=== PATIENT | female | born 1990 | race Caucasian/White ===

== ENCOUNTER 2018-02-01 20:30 | Outpatient (CLI) | payer OTHER ==
[2018-02-01 21:01] LABS: APPEARANCE,URINE CLEAR; BILIRUBIN,URINE NEGATIVE (NEGATIVE); COLOR,URINE YELLOW; GLUCOSE, URINE NEGATIVE (NEGATIVE); KETONES,URINE NEGATIVE (NEGATIVE); LEUKOCYTE ESTERASE,URINE NEGATIVE (NEGATIVE); NITRITE,URINE NEGATIVE (NEGATIVE); PROTEIN,URINE NEGATIVE (NEGATIVE); URINE SPECIFIC GRAVITY 1.025; UROBILINOGEN,URINE NEGATIVE mg/dL (<2.0)
[2018-02-01 21:16] LABS: URINE AMPHETAMINES SCREEN NEGATIVE; URINE BARBITURATES SCREEN NEGATIVE; URINE BENZODIAZEPINES SCREEN NEGATIVE; URINE COCAINE SCREEN NEGATIVE; URINE MARIJUANA (THC) SCREEN NEGATIVE; URINE METHADONE SCREEN NEGATIVE; URINE PHENCYCLIDINE SCREEN NEGATIVE
--- NOTE | 2018-02-01 23:05 | RADIOLOGY REPORT (SQ) ---
EXAM DESCRIPTION: OB limited ultrasound CLINICAL HISTORY: 28 years, Female, cervical length, abd pressure second trimester COMPARISON: None. TECHNIQUE: Targeted OB sonogram for Limited, requested parameters FINDINGS: Cervical length: 3.6 cm, appears closed, minimal fluid within cervical canal LENA: 7.3 cm, clear Cardiac activity: 137 bpm Placenta location: Posterior fundal. No abruption. No placenta previa. IMPRESSION: Targeted OB sonogram for Limited requested parameters.
== END 2018-02-01 23:16 | disposition home or self-care (01) ==
LOC: LC 20:30
PROVIDERS: ATTEND Obstetrics & Gynecology
PROC: 4A1HXCZ Monitoring of Products of Conception, Cardiac Rate, External Approach (ICD-10-PCS; principal; 2018-02-01)
DX: O26.892 Other specified pregnancy related conditions, second trimester (principal); R10.9 Unspecified abdominal pain; Z3A.00 Weeks of gestation of pregnancy not specified
CPT/HCPCS: 76815; 80307; 81001

== ENCOUNTER 2018-03-05 12:25 | Outpatient (CLI) | payer OTHER ==
[2018-03-05] MEDS ORDERED: BUTALB/ACETAMINOPHEN/CAFFEINE 1 TAB EACH ONE (13:10)
[2018-03-05 13:14] LABS: APPEARANCE,URINE CLEAR; BILIRUBIN,URINE NEGATIVE (NEGATIVE); COLOR,URINE COLORLESS; GLUCOSE, URINE NEGATIVE (NEGATIVE); KETONES,URINE NEGATIVE (NEGATIVE); LEUKOCYTE ESTERASE,URINE NEGATIVE (NEGATIVE); NITRITE,URINE NEGATIVE (NEGATIVE); PROTEIN,URINE NEGATIVE (NEGATIVE); URINE SPECIFIC GRAVITY 1.002; UROBILINOGEN,URINE NEGATIVE mg/dL (<2.0)
[2018-03-05] MEDS ORDERED: BUTALB/ACETAMINOPHEN/CAFFEINE 1 TAB EACH PO ONE (13:30)
[2018-03-05 13:47] LABS: URINE AMPHETAMINES SCREEN NEGATIVE; URINE BARBITURATES SCREEN NEGATIVE; URINE BENZODIAZEPINES SCREEN NEGATIVE; URINE COCAINE SCREEN NEGATIVE; URINE MARIJUANA (THC) SCREEN NEGATIVE; URINE METHADONE SCREEN NEGATIVE; URINE PHENCYCLIDINE SCREEN NEGATIVE
[2018-03-05] MEDS ORDERED: RINGERS SOLUTION,LACTATED 500 ML IV PRN (14:49)
[2018-03-05] MEDS ORDERED: DIPHENHYDRAMINE HCL 50 MG/ML VIAL IV ONE (14:50)
[2018-03-05] MEDS ORDERED: PROCHLORPERAZINE EDISYLATE INJ 10 MG/2 ML VIAL IM ONE (14:50)
[2018-03-05] MEDS ORDERED: PROCHLORPERAZINE MALEATE 10 MG TABLET ONE (15:23)
[2018-03-05] MEDS ORDERED: DIPHENHYDRAMINE HCL 50 MG/ML VIAL ONE (15:23)
== END 2018-03-05 16:55 | disposition home or self-care (01) ==
LOC: LC 12:25
PROVIDERS: ATTEND Obstetrics & Gynecology
PROC: 4A1HXCZ Monitoring of Products of Conception, Cardiac Rate, External Approach (ICD-10-PCS; principal; 2018-03-05)
DX: O26.892 Other specified pregnancy related conditions, second trimester (principal); R51 Headache; O21.2 Late vomiting of pregnancy; M54.9 Dorsalgia, unspecified; R42 Dizziness and giddiness; Z3A.26 26 weeks gestation of pregnancy
CPT/HCPCS: 59899; 81001; 80307; J3490; J1200; J0780; S0183

== ENCOUNTER 2018-03-23 22:12 | Outpatient (CLI) | payer OTHER ==
[2018-03-23 22:44] LABS: APPEARANCE,URINE CLEAR; BILIRUBIN,URINE NEGATIVE (NEGATIVE); COLOR,URINE STRAW; GLUCOSE, URINE NEGATIVE (NEGATIVE); KETONES,URINE NEGATIVE (NEGATIVE); LEUKOCYTE ESTERASE,URINE NEGATIVE (NEGATIVE); NITRITE,URINE NEGATIVE (NEGATIVE); PROTEIN,URINE NEGATIVE (NEGATIVE); URINE SPECIFIC GRAVITY 1.002; UROBILINOGEN,URINE NEGATIVE mg/dL (<2.0)
[2018-03-23 22:57] LABS: URINE AMPHETAMINES SCREEN NEGATIVE; URINE BARBITURATES SCREEN NEGATIVE; URINE BENZODIAZEPINES SCREEN NEGATIVE; URINE COCAINE SCREEN NEGATIVE; URINE MARIJUANA (THC) SCREEN NEGATIVE; URINE METHADONE SCREEN NEGATIVE; URINE PHENCYCLIDINE SCREEN NEGATIVE
[2018-03-23] MEDS ORDERED: HYDROXYZINE PAMOATE 50 MG CAPSULE PO ONE (23:35)
[2018-03-23] MEDS ORDERED: HYDROXYZINE PAMOATE 50 MG CAPSULE ONE (23:37)
== END 2018-03-23 23:46 | disposition home or self-care (01) ==
LOC: LC 22:12
PROVIDERS: ATTEND Obstetrics & Gynecology
PROC: 4A1HXCZ Monitoring of Products of Conception, Cardiac Rate, External Approach (ICD-10-PCS; principal; 2018-03-23)
DX: O47.03 False labor before 37 completed weeks of gestation, third trimester (principal); Z3A.28 28 weeks gestation of pregnancy
CPT/HCPCS: 80307; 81001

== ENCOUNTER 2018-04-11 13:34 | Outpatient (CLI) | payer OTHER ==
[2018-04-11 15:15] LABS: APPEARANCE,URINE CLEAR; BILIRUBIN,URINE NEGATIVE (NEGATIVE); COLOR,URINE YELLOW; GLUCOSE, URINE NEGATIVE (NEGATIVE); KETONES,URINE NEGATIVE (NEGATIVE); LEUKOCYTE ESTERASE,URINE NEGATIVE (NEGATIVE); NITRITE,URINE NEGATIVE (NEGATIVE); PROTEIN,URINE NEGATIVE (NEGATIVE); URINE SPECIFIC GRAVITY 1.017; UROBILINOGEN,URINE NEGATIVE mg/dL (<2.0)
[2018-04-11 16:00] LABS: URINE AMPHETAMINES SCREEN NEGATIVE; URINE BARBITURATES SCREEN NEGATIVE; URINE BENZODIAZEPINES SCREEN NEGATIVE; URINE COCAINE SCREEN NEGATIVE; URINE MARIJUANA (THC) SCREEN NEGATIVE; URINE METHADONE SCREEN NEGATIVE; URINE PHENCYCLIDINE SCREEN NEGATIVE
== END 2018-04-11 14:00 | disposition home or self-care (01) ==
LOC: LC 13:34
PROVIDERS: ATTEND Obstetrics & Gynecology Gynecology
PROC: 4A1HXCZ Monitoring of Products of Conception, Cardiac Rate, External Approach (ICD-10-PCS; principal; 2018-04-11)
DX: O36.8130 Decreased fetal movements, third trimester, not applicable or unspecified (principal); Z3A.31 31 weeks gestation of pregnancy
CPT/HCPCS: 80307; 81001

== ENCOUNTER 2018-04-12 16:28 | Outpatient (CLI) | payer OTHER ==
[2018-04-12 17:22] LABS: APPEARANCE,URINE CLEAR; BILIRUBIN,URINE NEGATIVE (NEGATIVE); COLOR,URINE STRAW; GLUCOSE, URINE NEGATIVE (NEGATIVE); KETONES,URINE NEGATIVE (NEGATIVE); LEUKOCYTE ESTERASE,URINE NEGATIVE (NEGATIVE); NITRITE,URINE NEGATIVE (NEGATIVE); PROTEIN,URINE NEGATIVE (NEGATIVE); URINE SPECIFIC GRAVITY 1.009; UROBILINOGEN,URINE NEGATIVE mg/dL (<2.0)
[2018-04-12 17:34] LABS: URINE AMPHETAMINES SCREEN NEGATIVE; URINE BARBITURATES SCREEN NEGATIVE; URINE BENZODIAZEPINES SCREEN NEGATIVE; URINE COCAINE SCREEN NEGATIVE; URINE MARIJUANA (THC) SCREEN NEGATIVE; URINE METHADONE SCREEN NEGATIVE; URINE PHENCYCLIDINE SCREEN NEGATIVE
[2018-04-12 17:59] LABS: ABSOLUTE EOSINOPHILS # (AUTO) 0.1 10^3/uL (0.0-0.6); ABSOLUTE LYMPHOCYTES (AUTO) 2.4 10^3/uL (0.5-4.7); ABSOLUTE MONOCYTES (AUTO) 1.2 10^3/uL (0.1-1.4); ABSOLUTE NEUT (AUTO) 7.8 10^3/uL (1.7-8.2); BASOPHILS % (AUTO) 0.3 % (0-2); EOSINOPHILS % (AUTO) 0.5 % (0-6); HEMATOCRIT 37.5 % (36.0-47.0); HEMOGLOBIN 12.8 g/dL (12.0-15.5); LYMPHOCYTES % (AUTO) 20.9 % (13-45); MEAN CORPUSCULAR HEMOGLOBIN 29.1 pg (27.0-33.4); MEAN CORPUSCULAR VOLUME 86 fl (80-97); MONOCYTES % (AUTO) 10.4 % (3-13); PLATELET COUNT 201 10^3/uL (150-450); RED BLOOD COUNT 4.38 10^6/uL (3.72-5.28); RED CELL DISTRIBUTION WIDTH 13.6 % (11.5-14.0); SEGMENTED NEUTROPHILS % (AUTO) 67.9 % (42-78); TOTAL CELLS COUNTED % (AUTO) 100 %; WHITE BLOOD COUNT 11.5 10^3/uL (4.0-10.5)
[2018-04-12 18:20] LABS: ALANINE AMINOTRANSFERASE 22 U/L (9-52); ALBUMIN 3.7 g/dL (3.5-5.0); ALKALINE PHOSPHATASE 103 U/L (38-126); ANION GAP 13 (5-19); ASPARTATE AMINO TRANSFERASE 18 U/L (14-36); BILIRUBIN,DIRECT 0.2 mg/dL (0.0-0.4); BILIRUBIN,TOTAL 0.3 mg/dL (0.2-1.3); BLOOD UREA NITROGEN 8 mg/dL (7-20); CALCIUM 9.7 mg/dL (8.4-10.2); CARBON DIOXIDE 18 mmol/L (22-30); CHLORIDE 107 mmol/L (98-107); GLUCOSE 70 mg/dL (75-110); SODIUM 137.5 mmol/L (137-145); TOTAL PROTEIN 6.6 g/dL (6.3-8.2); URIC ACID 5.2 mg/dL (2.5-6.2)
[2018-04-12 18:26] LABS: UR PRO/CREAT RATIO RESULT 0.4 mg/mg (0.0-0.2); URINE CREATININE 33.7 mg/dL (16-327); URINE PROTEIN 12.2 mg/dL (<12)
== END 2018-04-12 18:44 | disposition home or self-care (01) ==
LOC: LC 16:28
PROVIDERS: ATTEND Obstetrics & Gynecology
PROC: 4A1HXCZ Monitoring of Products of Conception, Cardiac Rate, External Approach (ICD-10-PCS; principal; 2018-04-12)
DX: O12.03 Gestational edema, third trimester (principal); Z3A.31 31 weeks gestation of pregnancy
CPT/HCPCS: 36415; 80053; 80307; 81001; 82570; 83615; 84156; 84550; 85025

== ENCOUNTER 2018-04-15 11:42 | Outpatient (CLI) | payer OTHER ==
--- NOTE | 2018-04-15 12:52 | Non Stress Test Report ---
Non Stress Test Datetime Report Generated by CPN: 04/15/2018 12:52 DEMOGRAPHIC EGA NST: 32.0 INDICATION Indication for Study: Decreased Movement VITAL SIGNS Temperature - NST: 97.9 Pulse - NST: 74 RESP - NST: 14 NBPSYS NST: 120 NBPDIA NST: 79 MONITORING Monitor Explained: Monitor Explained; Test Explained; Patient Verbalized Understanding Time on Monitor: 04/15/2018 12:01 Time off Monitor: 04/15/2018 12:31 NST Duration: 30 NST INTERVENTIONS NST Interventions: PO Hydration; Reposition Patient Physician Notified NST: A Bernabe CNM BABY A: [id number] BABY A Movement : Present Contraction Frequency : 0 FHR Baseline : 125 Accelerations : 15X15 Decelerations : None Variability : Moderate 6-25bpm NST Review: Meets Criteria for Reactive NST NST Review and Verified By : UZMA Tomlinson Results: Reactive NST REPORT Report Trigger: Send Report
== END 2018-04-15 12:35 | disposition home or self-care (01) ==
LOC: LC 11:42
PROVIDERS: ATTEND Obstetrics & Gynecology
PROC: 4A1HXCZ Monitoring of Products of Conception, Cardiac Rate, External Approach (ICD-10-PCS; principal; 2018-04-15)
DX: O36.8130 Decreased fetal movements, third trimester, not applicable or unspecified (principal); Z3A.32 32 weeks gestation of pregnancy
CPT/HCPCS: 59025

== ENCOUNTER 2018-04-19 09:48 | Outpatient (CLI) | payer OTHER ==
[2018-04-19 11:23] LABS: APPEARANCE,URINE CLEAR; BILIRUBIN,URINE NEGATIVE (NEGATIVE); COLOR,URINE STRAW; GLUCOSE, URINE NEGATIVE (NEGATIVE); KETONES,URINE NEGATIVE (NEGATIVE); LEUKOCYTE ESTERASE,URINE TRACE (NEGATIVE); NITRITE,URINE NEGATIVE (NEGATIVE); PROTEIN,URINE NEGATIVE (NEGATIVE); URINE SPECIFIC GRAVITY 1.004; UROBILINOGEN,URINE NEGATIVE mg/dL (<2.0)
[2018-04-19 11:29] LABS: ABSOLUTE BASOPHILS # (AUTO) 0.1 10^3/uL (0.0-0.2); ABSOLUTE LYMPHOCYTES (AUTO) 2.2 10^3/uL (0.5-4.7); ABSOLUTE MONOCYTES (AUTO) 0.9 10^3/uL (0.1-1.4); BASOPHILS % (AUTO) 0.6 % (0-2); EOSINOPHILS % (AUTO) 0.3 % (0-6); HEMATOCRIT 37.5 % (36.0-47.0); LYMPHOCYTES % (AUTO) 21.7 % (13-45); MEAN CORPUSCULAR HEMOGLOBIN 29.2 pg (27.0-33.4); MEAN CORPUSCULAR HGB CONC 34.7 g/dL (32.0-36.0); MEAN CORPUSCULAR VOLUME 84 fl (80-97); MONOCYTES % (AUTO) 9.2 % (3-13); PLATELET COUNT 182 10^3/uL (150-450); RED BLOOD COUNT 4.45 10^6/uL (3.72-5.28); RED CELL DISTRIBUTION WIDTH 13.6 % (11.5-14.0); SEGMENTED NEUTROPHILS % (AUTO) 68.2 % (42-78); TOTAL CELLS COUNTED % (AUTO) 100 %; WHITE BLOOD COUNT 10.2 10^3/uL (4.0-10.5)
[2018-04-19 11:42] LABS: URINE AMPHETAMINES SCREEN NEGATIVE; URINE BARBITURATES SCREEN NEGATIVE; URINE BENZODIAZEPINES SCREEN NEGATIVE; URINE COCAINE SCREEN NEGATIVE; URINE MARIJUANA (THC) SCREEN NEGATIVE; URINE METHADONE SCREEN NEGATIVE; URINE PHENCYCLIDINE SCREEN NEGATIVE
[2018-04-19 11:56] LABS: ALANINE AMINOTRANSFERASE 23 U/L (9-52); ALBUMIN 3.5 g/dL (3.5-5.0); ALKALINE PHOSPHATASE 105 U/L (38-126); ANION GAP 10 (5-19); ASPARTATE AMINO TRANSFERASE 21 U/L (14-36); BILIRUBIN,DIRECT 0.2 mg/dL (0.0-0.4); BILIRUBIN,TOTAL 0.3 mg/dL (0.2-1.3); BLOOD UREA NITROGEN 10 mg/dL (7-20); CALCIUM 9.3 mg/dL (8.4-10.2); CARBON DIOXIDE 19 mmol/L (22-30); CHLORIDE 108 mmol/L (98-107); GLUCOSE 71 mg/dL (75-110); POTASSIUM 4.5 mmol/L (3.6-5.0); SODIUM 136.8 mmol/L (137-145); TOTAL PROTEIN 6.2 g/dL (6.3-8.2); URIC ACID 5.9 mg/dL (2.5-6.2)
[2018-04-19 12:35] LABS: UR PRO/CREAT RATIO RESULT 0.6 mg/mg (0.0-0.2); URINE CREATININE 22.6 mg/dL (16-327); URINE PROTEIN 14.2 mg/dL (<12)
--- NOTE | 2018-04-19 12:47 | Non Stress Test Report ---
Non Stress Test Datetime Report Generated by CPN: 04/19/2018 12:47 DEMOGRAPHIC EGA NST: 32.4 INDICATION Indication for Study: Ordered by Provider Indication for Study (NST) Other: lc for preeclampsia MONITORING Monitor Explained: Monitor Explained; Test Explained; Patient Verbalized Understanding Time on Monitor: 04/19/2018 10:22 Time off Monitor: 04/19/2018 11:32 NST Duration: 70 NST INTERVENTIONS NST Interventions: PO Hydration; Reposition Patient Physician Notified NST: J Hardin CNM Physician Notified NST: J Hardin CNM BABY A: [id number] BABY A Movement : Present Contraction Frequency : denies Accelerations : 15X15 Decelerations : None Variability : Moderate 6-25bpm NST Review: Meets Criteria for Reactive NST NST Review and Verified By : Diony Peña RN NST Results: Reactive NST REPORT Report Trigger: Send Report
== END 2018-04-19 12:38 | disposition home or self-care (01) ==
LOC: LC 09:48
PROVIDERS: ATTEND Obstetrics & Gynecology
PROC: 4A1HXCZ Monitoring of Products of Conception, Cardiac Rate, External Approach (ICD-10-PCS; principal; 2018-04-19)
DX: O14.93 Unspecified pre-eclampsia, third trimester (principal); Z3A.32 32 weeks gestation of pregnancy
CPT/HCPCS: 36415; 59025; 80053; 80307; 81001; 82570; 84156; 84550; 85025

== ENCOUNTER 2018-04-26 14:26 | Observation (INO) | payer OTHER ==
[2018-04-26 15:16] LABS: APPEARANCE,URINE CLEAR; BILIRUBIN,URINE NEGATIVE (NEGATIVE); COLOR,URINE YELLOW; GLUCOSE, URINE NEGATIVE (NEGATIVE); KETONES,URINE NEGATIVE (NEGATIVE); LEUKOCYTE ESTERASE,URINE NEGATIVE (NEGATIVE); NITRITE,URINE NEGATIVE (NEGATIVE); PROTEIN,URINE 30 mg/dL (NEGATIVE); URINE SPECIFIC GRAVITY 1.015; UROBILINOGEN,URINE NEGATIVE mg/dL (<2.0)
[2018-04-26 15:22] LABS: ABSOLUTE LYMPHOCYTES (AUTO) 2.3 10^3/uL (0.5-4.7); ABSOLUTE MONOCYTES (AUTO) 0.9 10^3/uL (0.1-1.4); ABSOLUTE NEUT (AUTO) 7.4 10^3/uL (1.7-8.2); BASOPHILS % (AUTO) 0.1 % (0-2); EOSINOPHILS % (AUTO) 0.4 % (0-6); HEMATOCRIT 38.9 % (36.0-47.0); HEMOGLOBIN 13.1 g/dL (12.0-15.5); LYMPHOCYTES % (AUTO) 21.8 % (13-45); MEAN CORPUSCULAR HEMOGLOBIN 29.1 pg (27.0-33.4); MEAN CORPUSCULAR HGB CONC 33.8 g/dL (32.0-36.0); MEAN CORPUSCULAR VOLUME 86 fl (80-97); MONOCYTES % (AUTO) 8.3 % (3-13); PLATELET COUNT 195 10^3/uL (150-450); RED BLOOD COUNT 4.52 10^6/uL (3.72-5.28); SEGMENTED NEUTROPHILS % (AUTO) 69.4 % (42-78); TOTAL CELLS COUNTED % (AUTO) 100 %; WHITE BLOOD COUNT 10.6 10^3/uL (4.0-10.5)
[2018-04-26 15:37] LABS: ALANINE AMINOTRANSFERASE 26 U/L (9-52); ALBUMIN 3.4 g/dL (3.5-5.0); ALKALINE PHOSPHATASE 108 U/L (38-126); ANION GAP 11 (5-19); ASPARTATE AMINO TRANSFERASE 22 U/L (14-36); BILIRUBIN,DIRECT 0.1 mg/dL (0.0-0.4); BILIRUBIN,TOTAL 0.1 mg/dL (0.2-1.3); BLOOD UREA NITROGEN 13 mg/dL (7-20); CARBON DIOXIDE 22 mmol/L (22-30); CHLORIDE 105 mmol/L (98-107); GLUCOSE 95 mg/dL (75-110); POTASSIUM 4.5 mmol/L (3.6-5.0); SODIUM 137.9 mmol/L (137-145); URIC ACID 5.8 mg/dL (2.5-6.2)
[2018-04-26 15:41] LABS: URINE AMPHETAMINES SCREEN NEGATIVE; URINE BARBITURATES SCREEN NEGATIVE; URINE BENZODIAZEPINES SCREEN NEGATIVE; URINE COCAINE SCREEN NEGATIVE; URINE MARIJUANA (THC) SCREEN NEGATIVE; URINE METHADONE SCREEN NEGATIVE; URINE PHENCYCLIDINE SCREEN NEGATIVE
[2018-04-26 15:45] LABS: UR PRO/CREAT RATIO RESULT 0.4 mg/mg (0.0-0.2); URINE CREATININE 104.8 mg/dL (16-327); URINE PROTEIN 41.3 mg/dL (<12)
[2018-04-26] MEDS ORDERED: BETAMET ACET/BETAMET NA INJ 6 MG/1 ML IM ONE (16:07)
--- NOTE | 2018-04-26 16:22 | Admission Physical ---
Datetime Report Generated by CPN: 04/26/2018 16:21 CURRENT ADMISSION Chief Complaint: Signs/Symptoms Gestational HTN Indication for Induction: Not Applicable Admit Impression : , Intrauterine Admit Plan: Observation/Evaluation ALLERGIES Medication Allergies: No Medication Allergies: No Known Allergies (04/15/2018) Latex: No Latex Allergies Environmental Allergies: bees OBSTETRICAL HISTORY EDC: 06/10/2018 00:00 : 2 Para: 0 Term: 0 : 0 SAB: 1 IAB: 0 Ectopic: 0 Livin Cesareans: 0 VBACs: 0 Multiple Births: 0 Gestational Diabetes: No Rh Sensitization: No Incompetent Cervix: No AYSE: No Infertility: No ART Treatment: No Uterine Anomaly: No IUGR: No Hx Previous C/S: No Macrosomia: No Hx Loss/Stillborn: No PIH: No Hx : No Placenta Previa/Abruption: No Depression/PP Depression: Yes PTL/PROM: No Post Hemorrhage: No Current Procedures: Ultrasound Obstetrical History Comments: g1-2014, sab, unknown gestation (patient did not mention when doing history, info per records) g2-current , hypothryoid SEE RECORDS Alcohol: No Marijuana : No Cocaine: No Other Illicit Drugs: No Cigarettes: Former Smoker. [id number] MEDICAL HISTORY Diabetes: No Blood Transfusion: No Pulmonary Disease (Asthma, TB): No Breast Disease: No Hypertension: No Senior Management Consultant Surgery: No Heart Disease: No Hosp/Surgery: No Autoimmune Disorder: No Anesthetic Complications: No Kidney Disease: No Abnormal Pap Smear: Yes Neuro/Epilepsy: No Psychiatric Disorders: Yes Other Medical Diseases: No Hepatitis/Liver Disease: No Significant Family History: No Varicosities/Phlebitis: No Trauma/Violence : No Thyroid Dysfunction: Yes Medical History Comments: bipolar, anxiety, HSV, hypothyroid , abn pap with colpo-results wnl no further issues, occasional depression with bipolar INFECTIOUS HISTORY Gonorrhea: No Genital Herpes: Yes Chlamydia: No Tuberculosis: No Syphilis: No Hepatitis: No HIV/AIDS Exposure: No Rash or Viral Illness: No HPV: Unknown Infectious History Comments: last HSV outbreak was several years ago, history of genital warts listed in records PHYSICAL EXAM General: Normal HEENT: Normal Neurologic: Normal Thyroid: Deferred Heart: Normal Lungs: Normal Breast: Deferred Back: Normal Abdomen: Normal Genitourinary Exam: Normal Extremities: Normal DTRs: Normal Pelvic Type: Adequate Vital Signs: Reviewed FETUS A EGA: 33.4 Monitoring: External US Admit Comment: 28yo at 33+4ega presents from Office with elevated Bps and EDDY. EDDY resolved with meds. H/o of 24 hour UTP greater than 300mg and dx of preE. Pt with Bipolar with anxiety. Labile BPs and stable/nromal PIH labs. Admit for steroids for FLM. Monitor BPs. Collect 24 hour UTP and repeat labs in am. Will initiate BP meds. Deliver for signs of severe preE. PLANS FOR LABOR AND DELIVERY Labor and Delivery: None Pain Management: Medications; Epidural Feeding Preference: Both Benefit of Breast Feed Discussed: Yes Circumcision: N/A INFORMED CONSENT Informed Consent Obtained: Vaginal Delivery; Section Delivery; Risks, Benefits and Alternatives Discussed Signature: with User ID: [email or web address]
[2018-04-26] MEDS ORDERED: NIFEDIPINE 30 MG TAB.ER.24 PO SCH (17:00)
[2018-04-26] MEDS ORDERED: CALCIUM CARBONATE 500 MG TAB.CHEW PO PRN (17:50)
[2018-04-26] MEDS ORDERED: (PENDING PHARMACY ID) (Ranitidine Hcl [Zantac 150 Mg Tablet] 1 TAB) PO SCH (18:00)
[2018-04-26] MEDS ORDERED: NIFEDIPINE 30 MG TAB.ER.24 PO ONE (18:17)
[2018-04-26] MEDS ORDERED: BETAMET ACET/BETAMET NA INJ 6 MG/1 ML ONE (18:17)
[2018-04-26] MEDS ORDERED: TRAZODONE HCL 50 MG TABLET PO PRN (18:22)
[2018-04-26] MEDS ORDERED: VALACYCLOVIR HCL 500 MG TABLET ONE (19:50)
[2018-04-26] MEDS ORDERED: CITRIC ACID/SODIUM CITRATE ORAL SOLN 15 ML UDCUP PO ONE (20:22)
[2018-04-26] MEDS ORDERED: MAG HYDROX/AL HYDROX/SIMETH SUSP 30 ML UDCUP PO PRN (20:22)
[2018-04-26] MEDS ORDERED: ZOLPIDEM TARTRATE 5 MG TABLET PO SCH (22:00)
[2018-04-26] MEDS ORDERED: VALACYCLOVIR HCL 500 MG TABLET PO SCH (22:00)
[2018-04-26] MEDS ORDERED: FAMOTIDINE 20 MG TABLET PO SCH (22:00)
[2018-04-26] MEDS ORDERED: CITRIC ACID/SODIUM CITRATE ORAL SOLN 15 ML UDCUP ONE (22:14)
[2018-04-26] MEDS ORDERED: SERTRALINE HCL 50 MG TABLET ONE (22:15)
[2018-04-26] MEDS ORDERED: TRAZODONE HCL 50 MG TABLET ONE (22:22)
[2018-04-27] MEDS ORDERED: LEVOTHYROXINE SODIUM 0.1 MG TABLET PO SCH (06:00)
[2018-04-27] MEDS ORDERED: ACETAMINOPHEN 325 MG TABLET PO ONE ×3 (06:10→15:05)
[2018-04-27] MEDS ORDERED: ACETAMINOPHEN 325 MG TABLET ONE ×2 (06:28→15:01)
[2018-04-27 07:17] LABS: ABSOLUTE LYMPHOCYTES (AUTO) 1.6 10^3/uL (0.5-4.7); ABSOLUTE MONOCYTES (AUTO) 0.5 10^3/uL (0.1-1.4); ABSOLUTE NEUT (AUTO) 11.3 10^3/uL (1.7-8.2); BASOPHILS % (AUTO) 0.3 % (0-2); HEMOGLOBIN 13.3 g/dL (12.0-15.5); LYMPHOCYTES % (AUTO) 12.2 % (13-45); MEAN CORPUSCULAR HEMOGLOBIN 28.9 pg (27.0-33.4); MEAN CORPUSCULAR VOLUME 85 fl (80-97); MONOCYTES % (AUTO) 3.4 % (3-13); PLATELET COUNT 206 10^3/uL (150-450); RED CELL DISTRIBUTION WIDTH 14.1 % (11.5-14.0); SEGMENTED NEUTROPHILS % (AUTO) 84.1 % (42-78); TOTAL CELLS COUNTED % (AUTO) 100 %; WHITE BLOOD COUNT 13.4 10^3/uL (4.0-10.5)
[2018-04-27 07:29] LABS: ALANINE AMINOTRANSFERASE 27 U/L (9-52); ALBUMIN 3.5 g/dL (3.5-5.0); ALKALINE PHOSPHATASE 109 U/L (38-126); ANION GAP 12 (5-19); ASPARTATE AMINO TRANSFERASE 25 U/L (14-36); BILIRUBIN,DIRECT 0.1 mg/dL (0.0-0.4); BILIRUBIN,TOTAL 0.3 mg/dL (0.2-1.3); BLOOD UREA NITROGEN 13 mg/dL (7-20); CARBON DIOXIDE 18 mmol/L (22-30); CHLORIDE 102 mmol/L (98-107); GLUCOSE 96 mg/dL (75-110); SODIUM 132.1 mmol/L (137-145); TOTAL PROTEIN 6.4 g/dL (6.3-8.2); URIC ACID 6.3 mg/dL (2.5-6.2)
[2018-04-27] MEDS ORDERED: PRENATAL VITAMIN W DHA CAPSULE PO ONE (08:24)
[2018-04-27] MEDS ORDERED: NIFEDIPINE 30 MG TAB.ER.24 PO ONE (08:25)
[2018-04-27] MEDS ORDERED: VALACYCLOVIR HCL 500 MG TABLET ONE ×2 (08:25→17:08)
[2018-04-27] MEDS: VALACYCLOVIR HCL 500 MG TABLET PO SCH ×2 (08:31→17:14)
--- NOTE | 2018-04-27 08:53 | L&D Progress Notes ---
PROGRESS NOTES Datetime Report Generated by CPN: 04/27/2018 08:53 PROGRESS NOTE Impression: Eclampsia - Mild; Eclampsia - Moderate Procedures- Other: NST daily Plan: Continue Present Management Plan Other: continue 24 hr urine protein, plan 2nd dose of betamethasone. Informed Consent Obtained: Vaginal Delivery; Section Delivery; Risks, Benefits and Alternatives Discussed Vital Signs : Reviewed Comment: IUP at 33.5 with mild pre-Eclampsia complete 24 hr urine protien betamethasone watch for s/s of preeclampsia if elevated bp then need to increase procardia - currently 30 mg, may need to increase to 60 mg SIGNATURE SIGNATURE: [id number];[id number];13,[id number] SIGNATURE: [id number];14,[id number] SIGNATURE: [id number] SIGNATURE: 14,[id number] Signature: with User ID: [email or web address]
[2018-04-27] MEDS ORDERED: NIFEDIPINE 30 MG TAB.ER.24 PO SCH (09:00)
[2018-04-27] MEDS ORDERED: PRENATAL VITAMIN W DHA CAPSULE PO SCH ×2 (09:00→10:00)
[2018-04-27] MEDS ORDERED: (PENDING PHARMACY ID) (Prenatal Vit Calc,Iron,Folic [Prenatal Vitamins] 1 TAB) PO SCH (10:00)
[2018-04-27] MEDS ORDERED: LEVOTHYROXINE SODIUM PO SCH (10:00)
[2018-04-27] MEDS ORDERED: SERTRALINE HCL 50 MG TABLET PO SCH ×2 (10:00→22:00)
[2018-04-27 17:31] LABS: URINE PROTEIN 29.6 mg/dL (<12)
[2018-04-27 17:33] LABS: 24 HOUR URINE PROTEIN RESULT 503 mg/day (42-225)
[2018-04-27] MEDS ORDERED: BETAMET ACET/BETAMET NA INJ 6 MG/1 ML ONE (18:13)
[2018-04-27] MEDS ORDERED: BETAMET ACET/BETAMET NA INJ 6 MG/1 ML IM ONE (18:22)
== END 2018-04-27 19:06 | disposition home or self-care (01) ==
LOC: LC 14:26 → LR 16:06 → UNDOADMOB 16:14 → INTOOBSV 16:14 → LR 16:14 → UNDODISOB 04-27 19:06
PROVIDERS: ADMIT Student in an Organized Health Care Education/Training Program; ATTEND Student in an Organized Health Care Education/Training Program
PROC: 4A0HXCZ Measurement of Products of Conception, Cardiac Rate, External Approach (ICD-10-PCS; 2018-04-26)
PROC: 4A0HXCZ Measurement of Products of Conception, Cardiac Rate, External Approach (ICD-10-PCS; principal; 2018-04-27)
DX: O14.03 Mild to moderate pre-eclampsia, third trimester (principal); O99.343 Other mental disorders complicating pregnancy, third trimester; F31.9 Bipolar disorder, unspecified; F41.9 Anxiety disorder, unspecified; Z3A.33 33 weeks gestation of pregnancy; Z87.891 Personal history of nicotine dependence
CPT/HCPCS: 59025 ×2; 96372 ×2; 36415 ×2; 83615; 84156 ×2; 84550 ×2; 82570; 85025 ×2; 80053 ×2; 81001; 87081; 80307; J0702 ×2; J3490 ×2

== ENCOUNTER 2018-04-28 11:31 | Outpatient (CLI) | payer OTHER ==
[2018-04-28 12:31] LABS: APPEARANCE,URINE SLIGHTLY-CLOUDY; BILIRUBIN,URINE NEGATIVE (NEGATIVE); COLOR,URINE YELLOW; GLUCOSE, URINE NEGATIVE (NEGATIVE); KETONES,URINE NEGATIVE (NEGATIVE); LEUKOCYTE ESTERASE,URINE NEGATIVE (NEGATIVE); NITRITE,URINE NEGATIVE (NEGATIVE); PROTEIN,URINE 100 mg/dL (NEGATIVE); URINE SPECIFIC GRAVITY 1.017; UROBILINOGEN,URINE NEGATIVE mg/dL (<2.0)
--- NOTE | 2018-04-28 12:50 | Non Stress Test Report ---
Non Stress Test Datetime Report Generated by CPN: 04/28/2018 12:50 DEMOGRAPHIC EGA NST: 33.6 EGA NST: 33.5 EGA NST: 33.4 INDICATION Indication for Study: Ordered by Provider Indication for Study: Ordered by Provider Indication for Study: Ordered by Provider MONITORING Monitor Explained: Monitor Explained; Test Explained; Patient Verbalized Understanding Monitor Explained: Monitor Explained; Test Explained; Patient Verbalized Understanding Monitor Explained: Monitor Explained; Test Explained; Patient Verbalized Understanding Time on Monitor: 04/28/2018 12:00 Time on Monitor: 04/27/2018 07:23 Time on Monitor: 04/26/2018 19:16 Time off Monitor: 04/28/2018 12:22 Time off Monitor: 04/27/2018 07:59 Time off Monitor: 04/26/2018 19:50 NST Duration: 22 NST Duration: 36 NST Duration: 34 NST INTERVENTIONS NST Interventions: PO Hydration NST Interventions: PO Hydration; Reposition Patient NST Interventions: PO Hydration; Meal Given; Reposition Patient Physician Notified NST: Dr. Hargrove Physician Notified NST: Dr. Hargrove BABY A: [id number] BABY A Movement : Present Movement : Present Movement : Present Contraction Frequency : none Contraction Frequency : 0/irritability noted Contraction Frequency : None FHR Baseline : 120 FHR Baseline : 125 FHR Baseline : 130 Accelerations : 15X15 Accelerations : 15X15 Accelerations : 15X15 Decelerations : None Decelerations : None Decelerations : None Variability : Moderate 6-25bpm Variability : Moderate 6-25bpm Variability : Moderate 6-25bpm NST Review: Meets Criteria for Reactive NST NST Review: Meets Criteria for Reactive NST NST Review: Meets Criteria for Reactive NST NST Review and Verified By : Adina Ball RN NST Review and Verified By : Mary Aldrich RN NST Results: Reactive NST Results: Reactive NST REPORT Report Trigger: Send Report
[2018-04-28 12:51] LABS: URINE AMPHETAMINES SCREEN NEGATIVE; URINE BARBITURATES SCREEN NEGATIVE; URINE BENZODIAZEPINES SCREEN NEGATIVE; URINE COCAINE SCREEN NEGATIVE; URINE MARIJUANA (THC) SCREEN NEGATIVE; URINE METHADONE SCREEN NEGATIVE; URINE PHENCYCLIDINE SCREEN NEGATIVE
[2018-04-28 12:52] LABS: UR PRO/CREAT RATIO RESULT 0.9 mg/mg (0.0-0.2); URINE CREATININE 102.1 mg/dL (16-327); URINE PROTEIN 94.6 mg/dL (<12)
== END 2018-04-28 13:21 | disposition home or self-care (01) ==
LOC: LC 11:31
PROVIDERS: ATTEND Student in an Organized Health Care Education/Training Program
PROC: 4A1HXCZ Monitoring of Products of Conception, Cardiac Rate, External Approach (ICD-10-PCS; principal; 2018-04-28)
DX: O14.93 Unspecified pre-eclampsia, third trimester (principal); Z3A.33 33 weeks gestation of pregnancy
CPT/HCPCS: 36415; 59025; 80307; 81001; 82570; 84156

== ENCOUNTER 2018-04-30 13:50 | Inpatient (IN) | payer OTHER ==
[2018-04-30 14:52] LABS: APPEARANCE,URINE CLEAR; BILIRUBIN,URINE NEGATIVE (NEGATIVE); COLOR,URINE YELLOW; GLUCOSE, URINE NEGATIVE (NEGATIVE); KETONES,URINE NEGATIVE (NEGATIVE); LEUKOCYTE ESTERASE,URINE TRACE (NEGATIVE); NITRITE,URINE NEGATIVE (NEGATIVE); PROTEIN,URINE 100 mg/dL (NEGATIVE); URINE SPECIFIC GRAVITY 1.021
[2018-04-30 15:07] LABS: ABSOLUTE BASOPHILS # (AUTO) 0.1 10^3/uL (0.0-0.2); ABSOLUTE LYMPHOCYTES (AUTO) 2.5 10^3/uL (0.5-4.7); ABSOLUTE MONOCYTES (AUTO) 1.5 10^3/uL (0.1-1.4); ABSOLUTE NEUT (AUTO) 9.9 10^3/uL (1.7-8.2); BASOPHILS % (AUTO) 0.6 % (0-2); EOSINOPHILS % (AUTO) 0.3 % (0-6); HEMATOCRIT 36.4 % (36.0-47.0); HEMOGLOBIN 12.3 g/dL (12.0-15.5); LYMPHOCYTES % (AUTO) 17.7 % (13-45); MEAN CORPUSCULAR HEMOGLOBIN 29.1 pg (27.0-33.4); MEAN CORPUSCULAR HGB CONC 33.8 g/dL (32.0-36.0); MEAN CORPUSCULAR VOLUME 86 fl (80-97); PLATELET COUNT 185 10^3/uL (150-450); RED BLOOD COUNT 4.23 10^6/uL (3.72-5.28); RED CELL DISTRIBUTION WIDTH 14.1 % (11.5-14.0); SEGMENTED NEUTROPHILS % (AUTO) 70.4 % (42-78); TOTAL CELLS COUNTED % (AUTO) 100 %
[2018-04-30 15:29] LABS: ALANINE AMINOTRANSFERASE 23 U/L (9-52); ALBUMIN 3.1 g/dL (3.5-5.0); ALKALINE PHOSPHATASE 110 U/L (38-126); ANION GAP 12 (5-19); ASPARTATE AMINO TRANSFERASE 22 U/L (14-36); BILIRUBIN,DIRECT 0.2 mg/dL (0.0-0.4); BILIRUBIN,TOTAL 0.2 mg/dL (0.2-1.3); BLOOD UREA NITROGEN 14 mg/dL (7-20); CARBON DIOXIDE 18 mmol/L (22-30); CHLORIDE 107 mmol/L (98-107); GLUCOSE 100 mg/dL (75-110); POTASSIUM 4.1 mmol/L (3.6-5.0); TOTAL PROTEIN 5.9 g/dL (6.3-8.2); URIC ACID 6.4 mg/dL (2.5-6.2)
[2018-04-30 15:31] LABS: URINE AMPHETAMINES SCREEN NEGATIVE; URINE BARBITURATES SCREEN NEGATIVE; URINE BENZODIAZEPINES SCREEN NEGATIVE; URINE COCAINE SCREEN NEGATIVE; URINE MARIJUANA (THC) SCREEN NEGATIVE; URINE METHADONE SCREEN NEGATIVE; URINE PHENCYCLIDINE SCREEN NEGATIVE
[2018-04-30] MEDS ORDERED: HYDRALAZINE HCL 10 MG TABLET PO ONE (17:07)
[2018-04-30] MEDS ORDERED: HYDROCHLOROTHIAZIDE 25 MG TABLET ONE (17:12)
[2018-04-30] MEDS ORDERED: HYDRALAZINE HCL 10 MG TABLET ONE (17:20)
--- NOTE | 2018-04-30 18:35 | PDOC H&P ---
History of Present Illness Admission Date/PCP: 04/30/18 17:24 SHARON BUSH MD Patient complains of: headache and some facial tingling History of Present Illness: SOUMYA MASON is a 28 year old female G1 @ 34 wks EGA with known pre eclampsia. Pt has been recently admitted for complete evaluation and workup. recent 24 hour urine protein is > 500 mg and places her in pre eclampsia diagnosis. Since her recent eval she has developed headache that she took tylenol at 8:00 am this morning with no resolution. She indicates that earlier today she began to feel some tingling in her face and feels her face has become more swollen. She has had intermittent severe range blood pressures and currently she is on procardia 30 mg twice a day. She is already status post ACS protocol this past weekend. Past Medical History Gynecological Infection: Yes - HSV on valtrex Obstetrical History: none Psychiatric Medical History: Reports: Bipolar Disorder Past Surgical History Past Surgical History: Reports: Other - diagnositic laparoscopy Social History Information Source: Patient Lives with: Spouse/Significant other Smoking Status: Never Smoker Frequency of Alcohol Use: None Hx Recreational Drug Use: No Hx Prescription Drug Abuse: No Family History Family History: None, Reviewed & Not Pertinent Parental Family History Reviewed: Yes Children Family History Reviewed: Yes Sibling(s) Family History Reviewed.: Yes Medication/Allergy Home Medications: Levothyroxine Sodium [Tirosint] 1 tab PO DAILY 02/01/18 Vit Calc,Iron,Folic [ Vitamins] 1 tab PO DAILY 02/01/18 Ranitidine HCl [Zantac 150 mg Tablet] 1 tab PO BID 02/01/18 Trazodone HCl 100 mg PO DAILY 03/05/18 Sertraline HCl [Zoloft 50 mg Tablet] 50 mg PO DAILY 04/26/18 Allergies/Adverse Reactions: No Known Allergies Allergy (Verified 04/15/18 12:57) Review of Systems Constitutional: PRESENT: as per HPI, headache(s) Cardiovascular: PRESENT: other - mild chest pressure Physical Exam - Physical Exam Vital Signs: Intake & Output 04/29/18 04/30/18 05/01/18 06:59 06:59 06:59 Weight 88.4 kg General appearance: PRESENT: no acute distress, cooperative Neurological exam: PRESENT: alert, awake - Obstetrical Exam Fundal Height: 3/u - 4/u Tender: No Result Laboratory Results: 04/30/18 14:55 04/30/18 14:55 04/30/18 04/30/18 04/30/18 14:10 14:55 14:55 WBC 14.0 H RBC 4.23 Hgb 12.3 Hct 36.4 MCV 86 MCH 29.1 MCHC 33.8 RDW 14.1 H Plt Count 185 Seg Neutrophils % 70.4 Lymphocytes % 17.7 Monocytes % 11.0 Eosinophils % 0.3 Basophils % 0.6 Absolute Neutrophils 9.9 H Absolute Lymphocytes 2.5 Absolute Monocytes 1.5 H Absolute Eosinophils 0.0 Absolute Basophils 0.1 Sodium 137.0 Potassium 4.1 Chloride 107 Carbon Dioxide 18 L Anion Gap 12 BUN 14 Creatinine 0.57 Est GFR ( Amer) > 60 Est GFR (Non-Af Amer) > 60 Glucose 100 Uric Acid 6.4 H Calcium 9.0 Total Bilirubin 0.2 AST 22 ALT 23 Alkaline Phosphatase 110 Total Protein 5.9 L Albumin 3.1 L Urine Color YELLOW Urine Appearance CLEAR Urine pH 6.0 Ur Specific Stout 1.021 Urine Protein 100 H Urine Glucose (UA) NEGATIVE Urine Ketones NEGATIVE Urine Blood NEGATIVE Urine Nitrite NEGATIVE Ur Leukocyte Esterase TRACE H Urine WBC (Auto) 2 Urine RBC (Auto) 1 Assessment & Plan - Diagnosis (1) Preeclampsia Qualifiers: Trimester: third trimester Qualified Code(s): O14.93 - Unspecified pre- eclampsia, third trimester Is this a current diagnosis for this admission?: Yes (2) Qualifiers: Weeks of gestation: 34 weeks Qualified Code(s): Z3A.34 - 34 weeks gestation of Is this a current diagnosis for this admission?: Yes - Time Time Spent: 30 to 50 Minutes Critical Time spent with patient: Less than 15 minutes Medications reviewed and adjusted accordingly: Yes Anticipated discharge: Home Within: Other - Inpatient Certification Based on my medical assessment, after consideration of the patient's comorbidities, presenting symptoms, or acuity I expect that the services needed warrant INPATIENT care.: Yes I certify that my determination is in accordance with my understanding of Medicare's requirements for reasonable and necessary INPATIENT services [42 CFR 412.3e].: Yes Medical Necessity: Need Close Monitoring Due to Risk of Patient Decompensation, Need for Surgery - fetus in breech presentation and not a good candidate for version due to medical condition that places her at increased risk of abruption. D/W patient and her mother regarding my concerns for and continuing much longer. Counseled that there would be need for close observation due to risks of decompensation to eclampsia or HELLP syndrome. If the patient's condition deteriorates to the point that there needs to be an emergent delivery then will proceed with c/section immediately. voices understanding
[2018-04-30] MEDS ORDERED: FAMOTIDINE 20 MG TABLET ONE (20:36)
[2018-04-30] MEDS ORDERED: BUTALB/ACETAMINOPHEN/CAFFEINE 1 TAB EACH ONE (20:37)
[2018-04-30] MEDS ORDERED: SERTRALINE HCL 50 MG TABLET ONE (20:37)
[2018-04-30] MEDS ORDERED: VALACYCLOVIR HCL 500 MG TABLET ONE ×2 (20:37→20:54)
[2018-04-30] MEDS: BUTALB/ACETAMINOPHEN/CAFFEINE 1 TAB EACH PO PRN (20:51)
[2018-04-30] MEDS: VALACYCLOVIR HCL 500 MG TABLET PO SCH (20:51)
[2018-04-30] MEDS: FAMOTIDINE 20 MG TABLET PO SCH (20:54)
[2018-04-30] MEDS ORDERED: NIFEDIPINE 30 MG TAB.ER.24 PO ONE (22:12)
[2018-04-30] MEDS: NIFEDIPINE 30 MG TAB.ER.24 PO SCH (22:24)
[2018-04-30] MEDS: TRAZODONE HCL 50 MG TABLET PO SCH (22:26)
[2018-05-01] MEDS ORDERED: MAG HYDROX/AL HYDROX/SIMETH SUSP 30 ML UDCUP ONE (02:14)
[2018-05-01] MEDS ORDERED: MAG HYDROX/AL HYDROX/SIMETH SUSP 30 ML UDCUP PO PRN (02:15)
[2018-05-01] MEDS ORDERED: BUTALB/ACETAMINOPHEN/CAFFEINE 1 TAB EACH ONE (03:44)
[2018-05-01] MEDS: BUTALB/ACETAMINOPHEN/CAFFEINE 1 TAB EACH PO PRN (03:48)
[2018-05-01] MEDS ORDERED: LORATADINE 10 MG TABLET PO ONE (04:08)
[2018-05-01] MEDS ORDERED: FAMOTIDINE 20 MG TABLET ONE (05:25)
[2018-05-01 05:41] LABS: ABSOLUTE BASOPHILS # (AUTO) 0.1 10^3/uL (0.0-0.2); ABSOLUTE EOSINOPHILS # (AUTO) 0.1 10^3/uL (0.0-0.6); ABSOLUTE LYMPHOCYTES (AUTO) 2.5 10^3/uL (0.5-4.7); ABSOLUTE MONOCYTES (AUTO) 1.2 10^3/uL (0.1-1.4); ABSOLUTE NEUT (AUTO) 7.5 10^3/uL (1.7-8.2); BASOPHILS % (AUTO) 0.7 % (0-2); EOSINOPHILS % (AUTO) 0.5 % (0-6); HEMATOCRIT 35.2 % (36.0-47.0); HEMOGLOBIN 12.2 g/dL (12.0-15.5); LYMPHOCYTES % (AUTO) 22.1 % (13-45); MEAN CORPUSCULAR HEMOGLOBIN 29.6 pg (27.0-33.4); MEAN CORPUSCULAR HGB CONC 34.6 g/dL (32.0-36.0); MEAN CORPUSCULAR VOLUME 85 fl (80-97); MONOCYTES % (AUTO) 10.6 % (3-13); PLATELET COUNT 144 10^3/uL (150-450); RED BLOOD COUNT 4.12 10^6/uL (3.72-5.28); RED CELL DISTRIBUTION WIDTH 14.5 % (11.5-14.0); SEGMENTED NEUTROPHILS % (AUTO) 66.1 % (42-78); TOTAL CELLS COUNTED % (AUTO) 100 %; WHITE BLOOD COUNT 11.3 10^3/uL (4.0-10.5)
[2018-05-01 06:03] LABS: ALANINE AMINOTRANSFERASE 24 U/L (9-52); ALBUMIN 2.9 g/dL (3.5-5.0); ALKALINE PHOSPHATASE 113 U/L (38-126); ANION GAP 11 (5-19); ASPARTATE AMINO TRANSFERASE 22 U/L (14-36); BILIRUBIN,DIRECT 0.2 mg/dL (0.0-0.4); BILIRUBIN,TOTAL 0.3 mg/dL (0.2-1.3); BLOOD UREA NITROGEN 13 mg/dL (7-20); CALCIUM 8.4 mg/dL (8.4-10.2); CARBON DIOXIDE 20 mmol/L (22-30); CHLORIDE 107 mmol/L (98-107); GLUCOSE 98 mg/dL (75-110); POTASSIUM 3.9 mmol/L (3.6-5.0); SODIUM 137.7 mmol/L (137-145); TOTAL PROTEIN 5.5 g/dL (6.3-8.2); URIC ACID 6.8 mg/dL (2.5-6.2)
[2018-05-01] MEDS: LEVOTHYROXINE SODIUM 0.1 MG TABLET PO SCH (06:05)
[2018-05-01] MEDS: FAMOTIDINE 20 MG TABLET PO SCH ×2 (06:05→18:21)
[2018-05-01] MEDS ORDERED: ACETAMINOPHEN 325 MG TABLET PO PRN ×2 (08:25→12:47)
[2018-05-01] MEDS ORDERED: ACETAMINOPHEN 325 MG TABLET ONE (08:28)
--- NOTE | 2018-05-01 08:34 | L&D Progress Notes ---
PROGRESS NOTES Datetime Report Generated by CPN: 05/01/2018 08:34 PROGRESS NOTE Impression Other: mild preeclampsia Plan: Continue Present Management Informed Consent Obtained: Induction of Labor; Risks, Benefits and Alternatives Discussed Vital Signs : Reviewed Comment: 28 yo admitted for mild preeclampsia EDC 06/10/18 history- bipolar/ hsv on suppressive therapy/ hypothyroidism on synthroid abdomen nontender FHTs reactive for gestational age dtr +2/ no clonus cj hose with compression stockings lungs ctab/ s1s2 no murmurs noted facial edema noted pt reports headache this morning/ last medicated at 0340 with fiorcet pt to eat breakfast this morning and tylenol 975 mg po now will start ivf bmz x2 completed this weekend if bps remain stable will consider moving pt to current bp 137/68 platelets down to 144 from [address] esposito and pt with Katya Navarrete present FETUS A Monitoring: External US Variability: Moderate 6-25bpm Decelerations: None FHR Category: Category I : 34.2 SIGNATURE SIGNATURE: [id number];[id number];13,[id number] SIGNATURE: 13,[id number];14,[id number];10,[id number] Assignment: Bailee Esposito MD Signature: with User ID: [email or web address] : with User ID: [email or web address]
[2018-05-01] MEDS ORDERED: SERTRALINE HCL 50 MG TABLET ONE (09:25)
[2018-05-01] MEDS ORDERED: NIFEDIPINE 30 MG TAB.ER.24 PO ONE (09:26)
[2018-05-01] MEDS ORDERED: VALACYCLOVIR HCL 500 MG TABLET ONE ×2 (09:26→09:42)
[2018-05-01] MEDS ORDERED: PRENATAL VITAMIN W DHA CAPSULE PO ONE (09:27)
[2018-05-01] MEDS: SERTRALINE HCL 50 MG TABLET PO SCH (09:30)
[2018-05-01] MEDS: NIFEDIPINE 30 MG TAB.ER.24 PO SCH (09:33)
[2018-05-01] MEDS: PRENATAL VITAMIN W DHA CAPSULE PO SCH (09:38)
[2018-05-01] MEDS: VALACYCLOVIR HCL 500 MG TABLET PO SCH (09:42)
[2018-05-01] MEDS ORDERED: (PENDING PHARMACY ID) (Prenatal Vit Calc,Iron,Folic [Prenatal Vitamins] 1 TAB) PO SCH (10:00)
--- NOTE | 2018-05-01 10:37 | L&D Progress Notes ---
PROGRESS NOTES Datetime Report Generated by CPN: 05/01/2018 10:37 PROGRESS NOTE Impression: Eclampsia - Severe Plan: Deliver- Section Informed Consent Obtained: Section Delivery; Risks, Benefits and Alternatives Discussed Vital Signs : Reviewed Comment: Breech. Mild range BPs while on BID procardia. however, Patient has now had a headache unrelieved with rest or medication for more than 24 hours. Also of note dipstick proteinuria continues to increase with known preE - 24 hr UTP greater than 327 then greater than 500mg. Uric acid is conitnuing to elevate and platlets are decreased. Now with features of severe preE. Would recommend delivery. Pt does not desire a ECV. Would recommend Primary C/s for breech with Severe preE. Case also discussed with M Dr. Beulah Cedeno who agrees with recommendation for delivery. recommendations reviewed with storage solutions architect provider. FETUS C SIGNATURE: [id number];14,[id number];10,[id number] Signature: with User ID: [email or web address]
--- NOTE | 2018-05-01 10:58 | Non Stress Test Report ---
Non Stress Test Datetime Report Generated by CPN: 05/01/2018 10:58 DEMOGRAPHIC EGA NST: 34.2 EGA NST: 34.1 INDICATION Indication for Study: Chronic Hypertension; Ordered by Provider Indication for Study: Chronic Hypertension; Ordered by Provider MONITORING Monitor Explained: Monitor Explained; Test Explained; Patient Verbalized Understanding Monitor Explained: Monitor Explained; Test Explained; Patient Verbalized Understanding Time on Monitor: 05/01/2018 08:49 Time on Monitor: 04/30/2018 14:00 Time off Monitor: 05/01/2018 09:10 NST Duration: 21 NST INTERVENTIONS NST Interventions: PO Hydration NST Interventions: PO Hydration; Reposition Patient Physician Notified NST: MichaelBelen JerOSCAR BABY A: [id number] BABY A Movement : Present Contraction Frequency : 0 FHR Baseline : 125 Accelerations : 15X15 Decelerations : None Variability : Moderate 6-25bpm NST Review: Meets Criteria for Reactive NST NST Review and Verified By : R. Marhefka, RN NST Results: Reactive NST REPORT Report Trigger: Send Report
[2018-05-01] MEDS ORDERED: CEFAZOLIN INJ 1 GM VIAL ONE (12:16)
[2018-05-01] MEDS ORDERED: CITRIC ACID/SODIUM CITRATE ORAL SOLN 15 ML UDCUP ONE (12:16)
[2018-05-01] MEDS ORDERED: EPHEDRINE SULFATE INJ 50 MG/1 ML AMPULE ONE (12:30)
[2018-05-01] MEDS ORDERED: OXYTOCIN 10 UNIT/ML VIAL ONE ×3 (12:30→15:13)
[2018-05-01] MEDS ORDERED: ONDANSETRON HCL INJ/PF 4 MG/2 ML SDV ONE (12:30)
[2018-05-01] MEDS ORDERED: BUPIVACAINE HCL/DEX-WATER/PF 15 MG/2 ML AMPULE ONE (12:31)
[2018-05-01] MEDS ORDERED: MIDAZOLAM 2 MG/2 ML INJ ONE ×2 (12:31)
[2018-05-01] MEDS ORDERED: FENTANYL CITRATE INJ/PF 100 MCG/2 ML AMPUL ONE ×2 (12:31→15:14)
[2018-05-01] MEDS ORDERED: CITRIC ACID/SODIUM CITRATE ORAL SOLN 15 ML UDCUP PO PRN (12:43)
[2018-05-01] MEDS ORDERED: CEFAZOLIN 2 GM/D5W RTU 2 GM/50 ML RTUPB IV ONE (12:43)
[2018-05-01] MEDS ORDERED: ACETAMINOPHEN 1,000 MG/100 ML RTUPB IV PRN (12:47)
[2018-05-01] MEDS ORDERED: OXYTOCIN/NORMAL SALINE 20 UNIT/1,000 ML RTUINJ IV PRN (12:47)
[2018-05-01] MEDS ORDERED: DIPH/PERTUSS(ACELL)/TETANUS VAC/PF 0.5 ML SYR (>=10YO) IM PRN (12:47)
[2018-05-01] MEDS ORDERED: PROMETHAZINE HCL INJ 25 MG/1 ML VIAL IV PRN ×3 (12:47→15:10)
[2018-05-01] MEDS ORDERED: MEASLES,MUMPS&RUBELLA VACC/PF 0.5 ML VIAL SUBCUT PRN (12:47)
[2018-05-01] MEDS ORDERED: RINGERS SOLUTION,LACTATED 1,000 ML IV PRN (12:47)
[2018-05-01] MEDS ORDERED: MAGNESIUM SULFATE 4 GM/100 ML RTUPB IV ONE ×2 (12:50→18:12)
[2018-05-01] MEDS ORDERED: ONDANSETRON HCL INJ/PF 4 MG/2 ML SDV IV PRN (15:10)
[2018-05-01] MEDS ORDERED: MORPHINE SULFATE 10 MG/ML INJ IV PRN (15:10)
[2018-05-01] MEDS ORDERED: FENTANYL CITRATE INJ/PF 100 MCG/2 ML AMPUL IV PRN ×3 (15:10)
[2018-05-01] MEDS ORDERED: DIPHENHYDRAMINE HCL 50 MG/ML VIAL IV PRN ×2 (15:10→21:05)
[2018-05-01] MEDS ORDERED: MEPERIDINE HCL/PF INJ 25 MG/1 ML DISP.SYRIN IV PRN (15:10)
[2018-05-01] MEDS ORDERED: KETOROLAC TROMETHAMINE 60 MG/2 ML SDV ONE (15:16)
[2018-05-01] MEDS ORDERED: METOCLOPRAMIDE HCL INJ/PF 10 MG/2 ML SDV ONE (15:16)
[2018-05-01] MEDS ORDERED: DEXAMETHASONE SOD PHOSPHATE INJ 4 MG/1 ML VIAL ONE (15:16)
[2018-05-01] MEDS ORDERED: SUCCINYLCHOLINE CHLORIDE INJ 200 MG/10 ML VIAL ONE (15:16)
--- NOTE | 2018-05-01 15:19 | Operative Report ---
Operative Report DATE OF SURGERY: 05/01/18 PREOPERATIVE DIAGNOSIS: Patient has a breech baby with severe preeclampsia and we are doing a for delivery POSTOPERATIVE DIAGNOSIS: Same OPERATION: Primary via low transverse uterine incision SURGEON: SHARON BUSH ANESTHESIA: GA TISSUE REMOVED OR ALTERED: Placenta COMPLICATIONS: None ESTIMATED BLOOD LOSS: 250 cc INTRAOPERATIVE FINDINGS: Viable female suleman breech position normal uterus tubes and ovaries PROCEDURE: Patient was taken to the OR and placed in supine position after her spinal anesthesia. She is prepared and draped in sterile fashion. Bernard was placed for drainage of the bladder. Low transverse incision was made and carried down the level of the fascia. The fascial incision was made with knife and extended bilaterally with curved Garcia scissors. The fascia was off the rectus muscles using sharp and blunt dissection. The rectus muscles are in the midline. The peritoneum was entered without incident. Bladder blade was placed in uterine segment was identified. A low transverse incision was made creating a bladder flap. Bladder blade was placed low transverse uterine incision was made with the c safe knife and extended with fingertips. The baby was delivered with some fundal pressure. Mouth and nose were suctioned free. The cord is doubly clamped and cut. Baby is passed off to the baseball inspector in attendance. The placenta was manually extracted with trailing membranes. The uterus was externalized wrapped in a moist lap sponge. Uterine contents wiped free. Uterus was closed with a running locking layer of 0 chromic suture using the second layer to imbricate the first completing a double layer closure of the uterus. The serosa was closed with a running 2-0 chromic stitch. The pelvis was irrigated and suctioned free of fluid the uterus was replaced in the abdomen. The abdominal wall peritoneum was closed with running 2-0 chromic stitch. Fascia was closed with a running 0 Vicryl in 2 segments. Miryam's layer was brought together with 0 plain gut stitch and the skin was closed with running subcuticular 4-0 undyed Vicryl stitch. The wound was dressed mother and baby did well.
[2018-05-01] MEDS ORDERED: ACETAMINOPHEN 1,000 MG/100 ML RTUPB IV ONE (15:30)
[2018-05-01] MEDS ORDERED: KETOROLAC TROMETHAMINE INJ/PF 30 MG/1 ML SDV ONE ×2 (16:02→22:03)
[2018-05-01] MEDS: HYDROMORPHONE HCL INJ/PF 2 MG/ML AMPULE IV PRN ×3 (16:02→22:53)
[2018-05-01] MEDS ORDERED: HYDROMORPHONE HCL INJ/PF 2 MG/ML AMPULE ONE ×3 (16:02→22:49)
[2018-05-01] MEDS: KETOROLAC TROMETHAMINE INJ/PF 30 MG/1 ML SDV IV SCH ×2 (16:08→22:07)
[2018-05-01] MEDS ORDERED: MEPERIDINE HCL/PF INJ 25 MG/1 ML DISP.SYRIN ONE (16:08)
[2018-05-01] MEDS ORDERED: HYDRALAZINE HCL INJ/PF 20 MG/1 ML SDV IV ONE ×2 (16:42→23:11)
[2018-05-01] MEDS ORDERED: HYDRALAZINE HCL INJ/PF 20 MG/1 ML SDV ONE ×2 (16:43→23:12)
[2018-05-01] MEDS ORDERED: MORPHINE SULFATE 10 MG/ML INJ ONE (18:12)
[2018-05-01] MEDS ORDERED: MAGNESIUM SULFATE 20 GM/500 ML RTUINJ IV ONE (18:13)
[2018-05-01] MEDS: DOCUSATE SODIUM 100 MG CAPSULE PO SCH (18:21)
[2018-05-01] MEDS: MAGNESIUM SULFATE 20 GM/500 ML RTUINJ IV PRN (18:56)
--- NOTE | 2018-05-01 19:08 | Delivery Summary ---
Del Sum A-C Datetime Report Generated by CPN: 05/01/2018 19:08 DELIVERY PERSONNEL DELIVERY PERSONNEL: [id number] Delivery Doctor:: Junior Reilly MD Anesthesiologist:: Regulo Otto MD FORM SETTER STEEL FORMS:: Elicia Moss CRNA Nitric Acid Concentrator Operator:: Leanne Mckenna RN (Annotations: Data stored by Asif on behalf of user) Bench Molder:: Dr. Valdo Daugherty Nurse Practitioner:: MAMIE Springer Nursery Nurse:: Ricky Bradford RN Automatic Lathe Operator/TANK BUILDER HELPER: ST Rogers Automatic Lathe Operator/TANK BUILDER HELPER: Yeni Cooper HOSE SEAMER MATERNAL INFORMATION Delivery Anesthesia: General Medications After Delivery: Pitocin Bolus-Please Comment; Pitocin Drip 20 Units/1000ml NSS Maternal Complications: Other Complication Details: PRE-ECLAMPSIA LABOR SUMMARY EDC: 06/10/2018 00:00 No. Babies in Womb: 1 Attempted: No Labor Anesthesia: None LABOR INFORMATION Reason for Induction: Not Applicable Oxytocin: N/A Group B Beta Strep: Negative Antibiotics # of Doses: 0 Steroids Given: None Reason Steroids Not Administered: Not Applicable MEMBRANES Membranes Rupture Method: Artificial Rupture of Membranes: 05/01/2018 14:44 Length of Rupture (hr): 0.02 Amniotic Fluid Color: Clear Amniotic Fluid Amount: Small Amniotic Fluid Odor: Normal STAGES OF LABOR Stage 3 hr: 0 Stage 3 min: 1 VAGINAL DELIVERY Episiotomy: None Laceration #1: None Laceration Extension #1: N/A Sponge Count Correct: N/A Sharps Count Correct: N/A CSECTION DELIVERY Primary Indication: Breech Presentation Other Primary Indication: PRE-ECLAMPSIA CSection Urgency: Non-Scheduled CSection Incidence: Primary Labor: No Labor Elective: Nonelective CSection Incision: Lower Uterine Transverse BABY A INFORMATION Delivery Date/Time: 05/01/2018 14:45 Method of Delivery: Born in Route : No : N/A Forceps: N/A Vacuum Extraction: N/A Shoulder Dystocia : No PRESENTATION/POSITION BABY A Presentation: Breech PLACENTA INFORMATION BABY A Placenta Delivery Time : 05/01/2018 14:46 Placenta Method of Delivery: Manual Removal Placenta Status: Delivered SCORES BABY A Heart Rate 1 min: Slow, Below 100 bpm Resp Effort 1 min: Slow, Irregular Reflex Irritability 1 min: No Response Muscle Tone 1 min: Flaccid Color 1 min: Body Nogal, Extremities Blue Resuscitation Effort 1 min: Tactile Stimulation; Oxygen; PPV/NCPAP SCORE 1 MIN: 3 Heart Rate 5 min: >100 bpm Resp Effort 5 min: Slow, Irregular Reflex Irritability 5 min: Grimace Muscle Tone 5 min: Some Flexion of Extremities Color 5 min: Body Nogal, Extremities Blue Resuscitation Effort 5 min: Tactile Stimulation; Oxygen; PPV/NCPAP SCORE 5 MIN: 6 Heart Rate 10 min: >100 bpm Resp Effort 10 min: Slow, Irregular Reflex Irritability 10 min: Grimace Muscle Tone 10 min: Some Flexion of Extremities Color 10 min: Body Nogal, Extremities Blue Resuscitation Effort 10 min: Tactile Stimulation; Oxygen; PPV/NCPAP SCORE 10 MIN: 6 Heart Rate 15 min: >100 bpm Resp Effort 15 min: Good Cry Reflex Irritability 15 min: Cough or Sneeze or Pulls Away Muscle Tone 15 min: Some Flexion of Extremities Color 15 min: Body Nogal, Extremities Blue Resuscitation Effort 15 min: Tactile Stimulation; Oxygen; PPV/NCPAP SCORE 15 MIN: 8 INFANT INFORMATION BABY A Gestational Age at Delivery: 34.0 Gestational Status: Late - 34- 36.6 Weeks Outcome : Liveborn Infant Condition : Fair Sex: Female IDENTIFICATION BABY A Verification Date/Time: 05/01/2018 14:49 ID Band Number: [id number] Mother's Name Verified: Yes RN Verifying Infant: RBelen Mckenna, RN/OBelen Bradford, RN WEIGHT/LENGTH BABY A Birthweight (gm): 1952 Infant Weight (lb): 4 Weight (oz): 5 Infant Length (in): 17.25 Infant Length (cm): 43.82 CORD INFORMATION BABY A No. Cord Vessels: 3 Nuchal Cord : N/A Cord Blood Taken: Yes-For Eval (Mom's Blood Type - or O+) ASSESSMENT BABY A Skin to Skin: No BABY B INFORMATION : N/A
[2018-05-01] MEDS ORDERED: HYDROXYZINE PAMOATE 50 MG CAPSULE PO ONE (21:18)
[2018-05-01] MEDS ORDERED: HYDROXYZINE PAMOATE 50 MG CAPSULE ONE (21:34)
[2018-05-01] MEDS: TRAZODONE HCL 50 MG TABLET PO SCH (22:07)
[2018-05-02] MEDS ORDERED: HYDRALAZINE HCL INJ/PF 20 MG/1 ML SDV IV ONE ×2 (01:14→07:05)
[2018-05-02] MEDS ORDERED: HYDROMORPHONE HCL INJ/PF 2 MG/ML AMPULE ONE ×3 (01:59→09:01)
[2018-05-02] MEDS: HYDROMORPHONE HCL INJ/PF 2 MG/ML AMPULE IV PRN ×2 (02:00→05:15)
[2018-05-02] MEDS ORDERED: LORAZEPAM INJ 2 MG/1 ML VIAL ONE (03:05)
[2018-05-02] MEDS ORDERED: LORAZEPAM INJ 2 MG/1 ML VIAL IV ONE (03:30)
[2018-05-02] MEDS ORDERED: LORATADINE 10 MG TABLET PO ONE (04:23)
[2018-05-02] MEDS ORDERED: MAGNESIUM SULFATE 20 GM/500 ML RTUINJ IV ONE (05:05)
[2018-05-02] MEDS: MAGNESIUM SULFATE 20 GM/500 ML RTUINJ IV PRN (05:07)
[2018-05-02] MEDS ORDERED: FAMOTIDINE 20 MG TABLET ONE (05:58)
[2018-05-02] MEDS ORDERED: KETOROLAC TROMETHAMINE INJ/PF 30 MG/1 ML SDV ONE (06:51)
[2018-05-02] MEDS: KETOROLAC TROMETHAMINE INJ/PF 30 MG/1 ML SDV IV SCH (07:00)
[2018-05-02] MEDS: LEVOTHYROXINE SODIUM 0.1 MG TABLET PO SCH (07:01)
[2018-05-02] MEDS: FAMOTIDINE 20 MG TABLET PO SCH ×2 (07:01→21:09)
[2018-05-02 07:17] LABS: HEMATOCRIT 34.1 % (36.0-47.0); HEMOGLOBIN 11.6 g/dL (12.0-15.5); MEAN CORPUSCULAR HEMOGLOBIN 29.1 pg (27.0-33.4); MEAN CORPUSCULAR HGB CONC 33.9 g/dL (32.0-36.0); MEAN CORPUSCULAR VOLUME 86 fl (80-97); PLATELET COUNT 206 10^3/uL (150-450); RED BLOOD COUNT 3.97 10^6/uL (3.72-5.28); RED CELL DISTRIBUTION WIDTH 14.5 % (11.5-14.0)
[2018-05-02 07:22] LABS: ALANINE AMINOTRANSFERASE 35 U/L (9-52); ALBUMIN 3.3 g/dL (3.5-5.0); ALKALINE PHOSPHATASE 104 U/L (38-126); ANION GAP 10 (5-19); ASPARTATE AMINO TRANSFERASE 89 U/L (14-36); BILIRUBIN,DIRECT 0.2 mg/dL (0.0-0.4); BILIRUBIN,TOTAL 0.2 mg/dL (0.2-1.3); BLOOD UREA NITROGEN 13 mg/dL (7-20); CALCIUM 7.2 mg/dL (8.4-10.2); CARBON DIOXIDE 23 mmol/L (22-30); CHLORIDE 101 mmol/L (98-107); GLUCOSE 103 mg/dL (75-110); POTASSIUM 5.2 mmol/L (3.6-5.0); SODIUM 133.7 mmol/L (137-145); TOTAL PROTEIN 6.1 g/dL (6.3-8.2)
[2018-05-02] MEDS ORDERED: HYDRALAZINE HCL INJ/PF 20 MG/1 ML SDV ONE (07:50)
[2018-05-02] MEDS ORDERED: OXYCODONE-ACETAMINOPHEN 5-325 MG TABLET ONE ×3 (07:51→16:51)
[2018-05-02 08:04] LABS: WHITE BLOOD COUNT 23.6 10^3/uL (4.0-10.5)
[2018-05-02] MEDS ORDERED: PHENOL/SODIUM PHENOLATE 100 SPRAY/177 ML BOTTLE PO PRN (09:31)
[2018-05-02] MEDS ORDERED: NALBUPHINE HCL INJ 10 MG/1 ML AMPULE INJ ONE (09:31)
[2018-05-02] MEDS ORDERED: NALBUPHINE HCL INJ 10 MG/1 ML AMPULE ONE (09:57)
[2018-05-02] MEDS ORDERED: SERTRALINE HCL 50 MG TABLET ONE (09:57)
[2018-05-02] MEDS ORDERED: PRENATAL VITAMIN W DHA CAPSULE PO ONE (09:57)
[2018-05-02] MEDS ORDERED: DOCUSATE SODIUM 100 MG CAPSULE ONE (09:58)
[2018-05-02] MEDS ORDERED: VALACYCLOVIR HCL 500 MG TABLET ONE (09:58)
[2018-05-02] MEDS ORDERED: LEVOTHYROXINE SODIUM PO SCH (10:00)
[2018-05-02] MEDS ORDERED: PRENATAL VITAMIN W DHA CAPSULE PO SCH (10:00)
[2018-05-02] MEDS ORDERED: LABETALOL HCL 200 MG TABLET ONE (10:07)
[2018-05-02] MEDS: LABETALOL HCL 200 MG TABLET PO SCH ×2 (10:15→21:31)
[2018-05-02] MEDS: VALACYCLOVIR HCL 500 MG TABLET PO SCH (10:15)
[2018-05-02] MEDS: OXYCODONE-ACETAMINOPHEN 5-325 MG TABLET PO PRN ×4 (11:00→21:06)
--- NOTE | 2018-05-02 16:13 | L&D Progress Notes ---
PROGRESS NOTES Datetime Report Generated by CPN: 05/02/2018 16:12 PROGRESS NOTE Comment: pt doing well. Mag sulfate off since 1445. Excellent diuresis. Plan for transfer to the floor. Increase labetolol to 100mg TID. Mild range BPs. COntinue to monitor on the floor SIGNATURE SIGNATURE: [id number];[id number];13,[id number];15,[id number] SIGNATURE: [id number];13,[id number];14,[id number];10,[id number] SIGNATURE: 10,[id number];14,[id number];13,[id number] Signature: with User ID: [email or web address]
[2018-05-02] MEDS ORDERED: IBUPROFEN 800 MG TABLET ONE (16:50)
[2018-05-02] MEDS: IBUPROFEN 800 MG TABLET PO SCH ×2 (16:55→21:05)
[2018-05-02] MEDS: TRAZODONE HCL 50 MG TABLET PO SCH (21:06)
[2018-05-02] MEDS: DOCUSATE SODIUM 100 MG CAPSULE PO SCH ×2 (23:38→23:39)
[2018-05-02] MEDS: SERTRALINE HCL 50 MG TABLET PO SCH (23:39)
[2018-05-02] MEDS: PRENATAL VITAMIN W DHA CAPSULE PO SCH (23:39)
[2018-05-03] MEDS: OXYCODONE-ACETAMINOPHEN 5-325 MG TABLET PO PRN ×5 (02:42→21:06)
[2018-05-03] MEDS: IBUPROFEN 800 MG TABLET PO SCH ×4 (02:42→21:12)
[2018-05-03] MEDS: LEVOTHYROXINE SODIUM 0.1 MG TABLET PO SCH (05:05)
[2018-05-03] MEDS: LABETALOL HCL 200 MG TABLET PO SCH ×4 (05:05→21:12)
[2018-05-03] MEDS: FAMOTIDINE 20 MG TABLET PO SCH ×2 (05:06→18:01)
[2018-05-03] MEDS: SERTRALINE HCL 50 MG TABLET PO SCH (09:54)
[2018-05-03] MEDS: DOCUSATE SODIUM 100 MG CAPSULE PO SCH ×2 (09:54→18:01)
[2018-05-03] MEDS: PRENATAL VITAMIN W DHA CAPSULE PO SCH (09:55)
[2018-05-03] MEDS: VALACYCLOVIR HCL 500 MG TABLET PO SCH (09:55)
--- NOTE | 2018-05-03 10:18 | PDOC PROGRESS REPORT ---
Subjective-OB Progress Note for:: 05/03/18 Subjective: Pt very sore and weak. She reports moderate pain, is ambulatory, passing flatus , bleeding is light and she is voiding without difficulty. Mother is concerned about PPD and wants to make sure she is on Zoloft. Physical Exam (OB) Vital Signs: Temp Pulse Resp BP Pulse Ox 97.9 F 79 24 H 154/87 H 99 05/03/18 07:39 05/03/18 07:39 05/03/18 07:39 05/03/18 07:39 05/03/18 07:39 Intake & Output 05/02/18 05/03/18 05/04/18 06:59 06:59 06:59 Intake Total 500 1500 Output Total 1100 Balance 500 400 Weight 89.2 kg - Dressing Removed: Yes Incision: Dressing, Well Approximated Closure Type: Sutures - Abdomen Description: Tender, Soft Hernia Present: No Fundal Description: Firm, Midline Fundal Height: u/u - u/2 Objective-Diagnostic Laboratory: 05/02/18 06:44 05/02/18 06:44 Assessment and Plan(PN) - Assessment and Plan (1) S/P primary low transverse Is this a current diagnosis for this admission?: Yes (2) delivery (maternal condition) Is this a current diagnosis for this admission?: Yes (3) Preeclampsia Qualifiers: Trimester: third trimester Is this a current diagnosis for this admission?: Yes - Time Spent with Patient Time with patient: Less than 15 minutes Medications reviewed and adjusted accordingly: Yes - Disposition Anticipated Discharge: Home Within: within 48 hours
[2018-05-03 12:12] LABS: HEMATOCRIT 28.8 % (36.0-47.0); HEMOGLOBIN 9.7 g/dL (12.0-15.5); MEAN CORPUSCULAR HEMOGLOBIN 29.4 pg (27.0-33.4); MEAN CORPUSCULAR HGB CONC 33.7 g/dL (32.0-36.0); MEAN CORPUSCULAR VOLUME 87 fl (80-97); PLATELET COUNT 155 10^3/uL (150-450); RED CELL DISTRIBUTION WIDTH 15.1 % (11.5-14.0); WHITE BLOOD COUNT 13.5 10^3/uL (4.0-10.5)
[2018-05-03 12:43] LABS: ALANINE AMINOTRANSFERASE 42 U/L (9-52); ALBUMIN 2.9 g/dL (3.5-5.0); ALKALINE PHOSPHATASE 95 U/L (38-126); ANION GAP 8 (5-19); ASPARTATE AMINO TRANSFERASE 48 U/L (14-36); BILIRUBIN,DIRECT 0.2 mg/dL (0.0-0.4); BILIRUBIN,TOTAL 0.3 mg/dL (0.2-1.3); BLOOD UREA NITROGEN 18 mg/dL (7-20); CALCIUM 7.6 mg/dL (8.4-10.2); CARBON DIOXIDE 23 mmol/L (22-30); CHLORIDE 108 mmol/L (98-107); GLUCOSE 77 mg/dL (75-110); POTASSIUM 4.4 mmol/L (3.6-5.0); SODIUM 138.8 mmol/L (137-145); TOTAL PROTEIN 5.5 g/dL (6.3-8.2); URIC ACID 5.8 mg/dL (2.5-6.2)
[2018-05-03] MEDS: SIMETHICONE 80 MG TAB.CHEW PO PRN (21:07)
[2018-05-04] MEDS: OXYCODONE-ACETAMINOPHEN 5-325 MG TABLET PO PRN ×3 (01:36→11:04)
[2018-05-04] MEDS: TRAZODONE HCL 50 MG TABLET PO SCH (01:49)
[2018-05-04] MEDS: SIMETHICONE 80 MG TAB.CHEW PO PRN (03:59)
[2018-05-04] MEDS: IBUPROFEN 800 MG TABLET PO SCH ×3 (04:00→14:19)
[2018-05-04] MEDS: LABETALOL HCL 200 MG TABLET PO SCH ×2 (06:31→14:19)
[2018-05-04] MEDS: LEVOTHYROXINE SODIUM 0.1 MG TABLET PO SCH (06:31)
[2018-05-04] MEDS: FAMOTIDINE 20 MG TABLET PO SCH (06:31)
[2018-05-04] MEDS: VALACYCLOVIR HCL 500 MG TABLET PO SCH (09:43)
[2018-05-04] MEDS: SERTRALINE HCL 50 MG TABLET PO SCH (09:43)
[2018-05-04] MEDS: PRENATAL VITAMIN W DHA CAPSULE PO SCH (09:43)
[2018-05-04] MEDS: DOCUSATE SODIUM 100 MG CAPSULE PO SCH (09:43)
--- NOTE | 2018-05-04 10:55 | PDOC DISCHARGE SUMMARY ---
Final Diagnosis Discharge Date: 05/04/18 - Final Diagnosis (1) S/P primary low transverse Is this a current diagnosis for this admission?: Yes (2) delivery (maternal condition) Is this a current diagnosis for this admission?: Yes (3) Preeclampsia Is this a current diagnosis for this admission?: Yes (4) Breech presentation delivered Is this a current diagnosis for this admission?: Yes Discharge Data - Discharge Medication Home Medications: Levothyroxine Sodium [Tirosint] 1 tab PO DAILY 02/01/18 Vit Calc,Iron,Folic [ Vitamins] 1 tab PO DAILY 02/01/18 Ranitidine HCl [Zantac 150 mg Tablet] 1 tab PO BID 02/01/18 Trazodone HCl 100 mg PO DAILY 03/05/18 Sertraline HCl [Zoloft 50 mg Tablet] 50 mg PO DAILY 04/26/18 Reason(s) for Admission: Ceasarean Section-Primary, Obstetric Complications Procedures: NST, Management of Obstetric Complications Intrapartum Procedure(s): : Low Cervical, Transverse - Diagnosis Test Laboratory: Temp Pulse Resp BP Pulse Ox 98.1 F 97 20 145/74 H 96 05/04/18 03:56 05/04/18 03:56 05/04/18 03:56 05/04/18 03:56 05/04/18 03:56 04/30/18 04/30/18 05/01/18 14:10 14:55 05:09 RBC 4.23 4.12 Hgb 12.3 12.2 Hct 36.4 35.2 L Urine Opiates Screen NEGATIVE 05/02/18 05/03/18 06:44 11:52 RBC 3.97 3.30 L Hgb 11.6 L 9.7 L Hct 34.1 L 28.8 L Urine Opiates Screen - Discharge information/Instructions Discharge Activity: Balance Activity w/Rest, No Lifting Over 10 Pounds, No Lifting/Push/Pulling, Pelvic Rest, No tub bath Discharge Diet: Regular Disposition: HOME, SELF-CARE Follow up with: [facility] in: 4, Days
--- NOTE | 2018-05-04 12:40 | PDOC PROGRESS REPORT ---
Subjective-OB Progress Note for:: 05/04/18 Subjective: Pt feeling better today, still reports weakness in arms. Bleeding light. Reg diet with + flatus. Voiding without difficulty. Physical Exam (OB) Vital Signs: Temp Pulse Resp BP Pulse Ox 98.1 F 97 20 145/74 H 96 05/04/18 03:56 05/04/18 03:56 05/04/18 03:56 05/04/18 03:56 05/04/18 03:56 Intake & Output 05/03/18 05/04/18 05/05/18 06:59 06:59 06:59 Intake Total 1500 1200 480 Output Total 1100 Balance 400 1200 480 Weight 89.2 kg - PIH/Pre-Eclampsia Epigastric Pain: No Visual Changes: No - Dressing Removed: No Incision: Well Approximated Closure Type: op site - Lochia Lochia Amount: Scant < 10 ml Lochia Color: Rubra/Red - Abdomen Description: Tender, Soft, Round Hernia Present: No Fundal Description: Firm, Midline Fundal Height: u/u - u/2 - Extremities Upper extremity: Normal ROM Objective-Diagnostic Laboratory: 05/03/18 11:52 05/03/18 11:52 05/03/18 11:52 Sodium 138.8 Potassium 4.4 Chloride 108 H Carbon Dioxide 23 Anion Gap 8 BUN 18 Creatinine 0.68 Est GFR ( Amer) > 60 Est GFR (Non-Af Amer) > 60 Glucose 77 Uric Acid 5.8 Calcium 7.6 L Total Bilirubin 0.3 AST 48 H ALT 42 Alkaline Phosphatase 95 Total Protein 5.5 L Albumin 2.9 L Assessment and Plan(PN) - Assessment and Plan (1) S/P primary low transverse Is this a current diagnosis for this admission?: Yes (2) delivery (maternal condition) Is this a current diagnosis for this admission?: Yes (3) Preeclampsia Qualifiers: Trimester: third trimester Is this a current diagnosis for this admission?: Yes (4) Breech presentation delivered Is this a current diagnosis for this admission?: Yes Plan:: Spoke with Dr. Rangel regarding her complaints about unresolved weakness in her arms. She advised to have Anesthesia evaluate. Dr. Fernandez notified-- reportedly seen pt yesterday and spoke with her about the weakness in her arms. He is on unit now to evaluate her, he believes she is okay to go home and she will follow up on Sunday at [facility]. - Time Spent with Patient Time with patient: Less than 15 minutes Medications reviewed and adjusted accordingly: Yes - Disposition Anticipated Discharge: Home Within: within 24 hours
[2018-05-04 14:42] VITALS: BP 144/72
== END 2018-05-04 16:45 | disposition home or self-care (01) | DRG 765 ==
LOC: LC 13:50 → LR 17:24 → 2S 05-02 17:40
PROVIDERS: ADMIT Obstetrics & Gynecology; ATTEND Obstetrics & Gynecology
PROC: 10D00Z1 Extraction of Products of Conception, Low, Open Approach (ICD-10-PCS; principal; 2018-05-01)
DX: O14.94 Unspecified pre-eclampsia, complicating childbirth (principal); O98.52 Other viral diseases complicating childbirth; O99.834 Other infection carrier state complicating childbirth; O99.344 Other mental disorders complicating childbirth; F31.9 Bipolar disorder, unspecified; Z22.8 Carrier of other infectious diseases; B00.9 Herpesviral infection, unspecified; O32.1XX0 Maternal care for breech presentation, not applicable or unspecified; O14.14 Severe pre-eclampsia complicating childbirth; Z3A.34 34 weeks gestation of pregnancy; Z37.0 Single live birth
CPT/HCPCS: 1961; 36415; 80053; 80307; 81001; 83615; 84550; 85025; 85027; 86850; 86900; 86901; 94799; J0131; J0330; J0360; J0690; J1100; J1170; J1885; J2060; J2175; J2250; J2270; J2300; J2405; J2590; J2765; J3010; J3475; J3490